=== PATIENT | female | born 1985 ===

== ENCOUNTER 2019-03-01 17:00 | Inpatient (IN) | payer OTHER ==
[~2019-03-01] VITALS: Ht 149.9 cm; Wt 76.2 kg
[2019-03-01] MEDS ORDERED: PRENATABS RX T1 EACH PO (22:35)
[2019-03-04] MEDS ORDERED: NIFEDIPINE ER30 MG PO (09:50)
== END 2019-03-04 10:01 | disposition home or self-care (01) | DRG 833 ==
LOC: LDR 17:00 → OB/GYN 03-03 11:35 → LDR 03-03 12:40 → OB/GYN 03-03 13:51
PROVIDERS: ADMIT Obstetrics & Gynecology
PROC: 4A1HXCZ Monitoring of Products of Conception, Cardiac Rate, External Approach (ICD-10-PCS; principal; 2019-03-01)
DX: O47.03 False labor before 37 completed weeks of gestation, third trimester (principal); Z34.03 Encounter for supervision of normal first pregnancy, third trimester